=== PATIENT | female | born 1990 | race Caucasian/White ===

== ENCOUNTER 2016-05-11 07:27 | Day surgery (SDC) | payer OTHER ==
[2016-05-11 07:47] LABS: BASOPHILS % 0.2 (0.0-1.5); EOSINOPHILS % 2.6 % (0.0-6.8); LYMPHOCYTES # 1.9 # k/uL (0.6-4.0); MEAN CORPUSCULAR HEMOGLOBIN 29.1 pg (28.0-34.0); MONOCYTES # 0.2 # k/uL (0.0-0.9); MONOCYTES % 3.1 % (0.0-11.0); NEUTROPHILS # 4.8 # k/uL (1.4-7.7)
[2016-05-11 07:50] LABS: APPEARANCE,URINE Clear (CLEAR); COLOR,URINE Yellow (YELLOW); OCCULT BLOOD,URINE Negative (NEGATIVE); UROBILINOGEN URINE 0.2 Eu (0.2-1.0)
[2016-05-11] MEDS ORDERED: MIDAZOLAM HCL 2 MG/2 ML VIAL ONE (08:00)
[2016-05-11] MEDS ORDERED: SEVOFLURANE 250 ML LIQUID IH ONE (08:00)
[2016-05-11] MEDS ORDERED: oxyCODONE/ACETAMINOPHEN 5/325 TABLET PO ONE (08:00)
[2016-05-11] MEDS ORDERED: BUPIVACAINE HCL/PF 2.5 MG/ML 10ML VIAL IV ONE (08:00)
[2016-05-11] MEDS ORDERED: LACTATED RINGERS 1,000 ML IV.SOLN IV ONE (08:00)
[2016-05-11] MEDS ORDERED: ACETAMINOPHEN 1,000 MG/100 ML INJ IV ONE (08:00)
[2016-05-11] MEDS ORDERED: SALINE FLUSH 10 ML DISP.SYRIN IVF ONE (08:00)
[2016-05-11] MEDS ORDERED: PROPOFOL 200 MG/20 ML VIAL IV ONE (08:00)
[2016-05-11] MEDS ORDERED: ONDANSETRON HCL/PF 4 MG/ 2ML VIAL ONE (08:00)
[2016-05-11] MEDS ORDERED: GLYCOPYRROLATE 0.2 MG/1 ML 1 ML ONE (08:00)
[2016-05-11] MEDS ORDERED: SUCCINYLCHOLINE CHLORIDE 20 MG/ML 10ML VIAL ONE (08:00)
[2016-05-11] MEDS ORDERED: fentaNYL CITRATE/PF 100 MCG/ 2ML AMP ONE (08:00)
[2016-05-11 08:18] LABS: eGFR (African) > 60; eGFR (Non-African) > 60
--- NOTE | 2016-05-12 10:06 | Operative Note ---
SURGEON: Dr. Josue Sears ANESTHESIA: General endotracheal. ESTIMATED BLOOD LOSS: 70 mL. PREOPERATIVE DIAGNOSIS: Desires sterility. POSTOPERATIVE DIAGNOSIS: Desires sterility. PROCEDURE PERFORMED: Laparoscopic tubal cauterization. OPERATIVE PROCEDURE AND FINDINGS: The patient was taken to the operating room after an adequate level of general endotracheal anesthesia. She was prepped and draped in a sterile fashion. A time-out was performed prior to any further instrumentation of the patient. A single-tooth tenaculum was placed in the anterior lip of the cervix. Sound was placed in the uterine cavity. These instruments were secured together to use for manipulation of the uterus during laparoscopy. A small infraumbilical incision was then made in the skin. Laparoscopic sleeve and trocar were inserted in the peritoneal cavity. Trocar was removed. The laparoscope was inserted. The peritoneal cavity was visualized as it was being insufflated with 3 L of carbon dioxide gas. The patient was then placed in the lithotomy position. The uterus, fallopian tube, and ovaries were normal in appearance. Anne bipolar forceps were used to cauterize each fallopian tube from the junction of the tube and uterus out to the mid-portion of the tube. Each cautery application lasted for 10 seconds. Carpet Layer pictures were taken at the end of the operation. The entire peritoneal cavity was surveyed. The peritoneal surfaces were pristine. There was no evidence for any endometriosis or infection. Portions of the bowel that could be visualized, the omentum, the greater curvature of the stomach, the surface of the liver and diaphragm were all normal in appearance. This ended the laparoscopic procedure. The patient was taken out of the lithotomy position. Gas was allowed to escape. All instruments were removed from the peritoneal cavity and vagina. The incision on the patient's abdomen was closed with interrupted 4-0 Vicryl. Band-Aids were applied to the wound. Patient was awakened and extubated in the operating room. Needle, sponge, and instrument counts were performed more than once by the OR circulating nurse and splicing technician. I was told the counts were correct. Patient was then transported to the recovery room in very good condition. GUIDO
== END 2016-05-11 07:30 ==
LOC: OPSURG 07:27
PROVIDERS: ATTEND General Practice
DX: Z30.2 Encounter for sterilization (principal)
CPT/HCPCS: 36415; 58670; 80053; 81002; 81025; 85025; 85610; A9270; J0330; J2250; J2405; J2704; J3010; J3490; J7030; J7120; S1016